=== PATIENT | male | born 1985 | race African-American/Black ===

== ENCOUNTER → 2025-02-15 | Outpatient (CLI) | payer SELFPAY ==
[2025-02-15 14:54] LABS: Hematocrit 46.9 % (40-54); Hemoglobin 15.5 g/dL (13.0-16.5)
[2025-02-15 16:22] LABS: ALB/GLOB Ratio 1.3 RATIO (0.9-2.4); AST(SGOT) 30 U/L (<=37); Alanine Aminotransfer ALT/SGPT 26 U/L (<=46); Albumin, Serum 4.4 g/dL (3.5-5.0); Alkaline Phosphatase 75 U/L (40-129); Anion Gap 14 (5-15); BUN 24 mg/dL (4-19); BUN/Creat Ratio 18.2 RATIO (10-20); Calcium,Total 9.3 mg/dL (7.6-11.0); Carbon Dioxide 18.5 mmol/L (21.0-32.0); Chloride 105 mmol/L (98-108); Creatinine, Serum 1.33 mg/dL (0.70-1.20); EST Glomerular Filtration Rate 70 (>60); Globulin 3.3 g/dL (2.2-4.2); Glucose 94 mg/dL (70-99); Potassium 4.3 mmol/L (3.3-5.1); Protein, Total 7.7 g/dL (5.9-8.4); Sodium Level 137 mmol/L (133-145); Total Bilirubin 0.41 mg/dL (0.00-1.30)
[2025-02-15 17:15] LABS: Cholesterol 170 mg/dL (<=200); Estradiol 41.6 pg/mL; Follicle Stimulating Hormone 3.9 mIU/mL; High Density Lipoprotein 34 mg/dL; Low Density Lipoprotein Calc. 110 mg/dL; Luteinizing Hormone 6.1 mIU/mL; PSA,Total - Annual Screen 0.49 ng/mL (0.02-4.00); Triglycerides 127 mg/dL; Very Low Density Lipoprotein 25 mg/dL (5-40); cholesterol:hdl ratio screen 4.96
[2025-02-20 16:08] LABS: PROLACTIN 18.4 ng/mL (3.9-22.7); Testosterone, % Free 2.58 % (1.50-4.20); Testosterone, Free 7.12 ng/dL (5.00-21.00); Testosterone, Total 276 ng/dL (264-916)
== END | disposition home or self-care (01) ==
LOC: LAB 13:58
PROVIDERS: Referring Provider Registered Nurse; Visit Provider Registered Nurse
DX: E29.1 Testicular hypofunction (principal); R53.83 Other fatigue; R68.82 Decreased libido; R63.5 Abnormal weight gain; R35.0 Frequency of micturition; R39.16 Straining to void; Z12.5 Encounter for screening for malignant neoplasm of prostate
CPT/HCPCS: 36415; 80053; 80061; 82627; 82670; 83001; 83002; 84146; 84153; 84270; 84402; 84403; 84443; 85014; 85018; 82626; G0103